=== PATIENT | female | born 2000 | race Caucasian/White ===

== ENCOUNTER 2021-03-13 14:31 | Inpatient (IN) | payer MEDICAID, SELFPAY ==
[2021-03-13 14:32] VITALS: BP 122/91; PULSE 108; RESP 16; TEMP 36.5; O2SAT 99; BMI 38.9
--- NOTE | 2021-03-13 14:59 | W.ED.PSYCH ---
HPI - Psych General: Chief Complaint: Psychiatric Symptoms Stated Complaint: SI Time Seen by Provider: 03/13/21 14:55 History of Present Illness: HPI Narrative: Patient states she has thoughts of self-harm. States that she has PTSD which is being triggered by having nightmares here recently she had a close friend that in December 2020. Patient states that she feels like that were might be better off if she was not here. Said she spent most of her young life and psychiatric facilities. Patient also says she does not take medication on a regular basis but has been prescribed that. complaint: other (Thoughts of self-harm) Onset (ago): day(s) Duration: constant and getting worse History of same: Yes Context: not taking psychiatric medications Associated symptoms: Reports depression; Deny homicidal ideation or suicidal ideation Treatments prior to arrival: none If self harm: admits thoughts of self harm Review of Systems Const: Denies: fever(s), chills or body aches Eyes: Denies: change in vision or blurry vision ENMT: Denies: throat pain or nasal congestion Card: Denies: chest pain or dyspnea on exertion Resp: Denies: dyspnea, productive cough or non-productive cough GI: Denies: abdominal pain, nausea or vomiting Musc: Denies: extremity pain Skin/Breast: Denies: rash Neuro: Denies: headache(s) Psych: Reports: depression, hopelessness and other (Thoughts of self-harm); Denies: anxiety, suicidal ideation or homicidal ideation Otto/Lymph: Denies: easy bruising Physical Exam Const: COMMON NORMALS: no acute distress, average body habitus and patient oriented x3 HENMT: COMMON NORMALS: normocephalic HEAD & SCALP: normal to inspection and normocephalic FACE & SINUS: normal facial exam Eye: COMMON NORMALS: conjunctivae normal GENERAL EYE: appearance normal, both eyes and all related structures CONJUNCTIVA: Yes conjunctivae normal Neck/C-Spine: COMMON NORMALS: no JVD Chest: COMMONS NORMALS: normal inspection of the chest Resp: COMMON NORMALS: normal respiratory effort and clear to auscultation bilaterally AUSCULTATION: clear to auscultation bilaterally Cardio: COMMON NORMALS: no JVD, regular rate and regular rhythm RATE: regular rate RHYTHM: regular rhythm GI: COMMON NORMALS: Normal to inspection, nondistended, normoactive bowel sounds present Extremity: COMMON NORMALS: normal to inspection and full ROM Neuro: COMMON NORMALS: patient oriented x3 Psych: COMMON NORMALS: mental status grossly normal, Normal thought process present and speech normal APPEARANCE: Yes grossly normal ATTITUDE: Yes calm and Yes engaged ACTIVITY/MOTOR BEHAVIOR: Yes appropriate eye contact SPEECH: Yes normal speech MOOD & AFFECT: Yes depressed mood and Yes sad THOUGHT PROCESS: Normal thought process present THOUGHT CONTENT: Yes other (Thoughts of self-harm) ATTENTION/CONCENTRATION: Yes attention grossly intact MEMORY/COGNITION: Yes memory grossly intact Course Vital Signs: Vital signs: Vital Signs Temperature 97.7 F 03/13/21 14:32 Pulse Rate 108 H 03/13/21 14:32 Respiratory Rate 16 03/13/21 14:32 Blood Pressure 122/91 03/13/21 14:32 Pulse Oximetry 99 03/13/21 14:32 MDM - Psych MDM Narrative: Medical decision making narrative: Dr. Glynn accepts patient for admission Lab Data: Labs: Lab Results 03/13/21 03/13/21 03/13/21 Range/Units 15:18 15:18 15:40 WBC 8.9 (4.5-13.0) 10^3/ uL RBC 5.06 (4.1-5.3) 10^6/u L Hgb 14.4 (11.5-15.3) g/dL Hct 42.3 (37.0-47.0) % MCV 83.6 (81-99) fl MCH 28.5 (28.0-34.0) pg MCHC 34.0 (30.0-36.0) g/dL RDW 12.1 (12.1-15.1) % Plt Count 340 (130-400) 10^3/c mm MPV 9.3 (7.4-10.4) fL Neut % (Auto) 62.2 % Lymph % (Auto) 27.3 % [place] % (Auto) 7.3 % Eos % (Auto) 2.5 % Baso % (Auto) 0.6 % Neut # (Auto) 5.55 (1.8-8.0) 10^3/u L Lymph # (Auto) 2.4 (1.5-6.5) 10^3/u L [place] # (Auto) 0.7 (0.2-0.9) 10^3/u L Eos # (Auto) 0.2 (0.0-0.8) 10^3/u L Baso # (Auto) 0.1 (0.0-0.1) 10^3/u L Nucleated RBC % (a uto) 0 % Nucleated RBCs # 0.0 /100WBC Urine Color Dark yellow (Yellow) Urine Appearance Hazy A (CLEAR) Urine pH 5 (5-7) Ur Specific Gravit y 1.030 (1.005-1.030) Urine Protein Neg (Negative) Urine Glucose (UA) Norm (Normal) Urine Ketones 1+ H (Negative) Urine Blood 3+ H (Negative) Urine Nitrate Negative (Negative) Urine Bilirubin 1+ H (Negative) Urine Urobilinogen 1 H (Negative) mg/dL Ur Leukocyte Jennifer ase Negative (Negative) Urine RBC 15-25 H (0-2) /hpf Urine WBC 0-4 H (0-5) /hpf Ur Squamous Epith Cells 55-80 H (0-5) /hpf Ur Transition Epit h Cell 10-15 /hpf Amorphous Sediment Not Reportable Urine Bacteria 2+ H (NONE) /hpf Urine Mucus 1+ /hpf Urine Opiates Scre en Negative (Negative) ng/mL Ur Barbiturates Sc reen Negative (Negative) ng/mL Ur Phencyclidine S crn Negative (Negative) ng/mL Ur Amphetamines Sc reen Negative (Negative) ng/mL U Benzodiazepines Scrn Negative (Negative) ng/mL Urine Cocaine Scre en Negative (Negative) ng/mL U Marijuana (THC) Screen Negative (Negative) ng/mL Discharge Plan Discharge Prescriptions: No Action No Known Home Medications RF: 0 Coding Level of Care Code ED Photographer News for Idalia Fwd Exam Comprehensive
[2021-03-13 16:08] LABS: Basophils # 0.1 10^3/uL (0.0-0.1); Basophils % 0.6 %; Eosinophils # 0.2 10^3/uL (0.0-0.8); Eosinophils % 2.5 %; Hematocrit 42.3 % (37.0-47.0); Hemoglobin 14.4 g/dL (11.5-15.3); Lymphocytes # 2.4 10^3/uL (1.5-6.5); Lymphocytes % 27.3 %; Mean Corpuscular Hemoglobin 28.5 pg (28.0-34.0); Mean Corpuscular Volume 83.6 fl (81-99); Mean Platelet Volume 9.3 fL (7.4-10.4); Monocytes # 0.7 10^3/uL (0.2-0.9); Monocytes % 7.3 %; Neutrophils # 5.55 10^3/uL (1.8-8.0); Neutrophils % 62.2 %; Nucleated Red Blood Cells % 0 %; Platelet Count 340 10^3/cmm (130-400); Red Blood Count 5.06 10^6/uL (4.1-5.3); Red Cell Distribution Width 12.1 % (12.1-15.1); White Blood Count 8.9 10^3/uL (4.5-13.0)
[2021-03-13 16:27] LABS: Amphetamines Screen Urine Negative (Negative); Barbiturates Screen Urine Negative (Negative); Benzodiazepines Screen Urine Negative (Negative); Cocaine Screen Urine Negative (Negative); Opiate Screen Urine Negative (Negative); PCP Screen Urine Negative (Negative); THC Screen Urine Negative (Negative)
[2021-03-13 16:36] LABS: Bilirubin Urine 1+ (Negative); Blood Urine 3+ (Negative); Glucose Urine UA Norm (Normal); Ketones Urine 1+ (Negative); Nitrate Urine Negative (Negative); Protein Urine Neg (Negative); Urine Appearance Hazy (CLEAR); Urine Color Dark Yellow (Yellow); Urobilinogen Urine 1 mg/dL (Negative); pH Urine 5 (5-7)
[2021-03-13 16:37] LABS: Add Urine Microscopic? YES; Leukocyte Esterase Urine Negative (Negative)
[2021-03-13 16:38] LABS: RBC Urine 15-25 /hpf (0-2); WBC Urine 0-4 /hpf (0-5)
[2021-03-13 16:39] LABS: Bacteria Urine 2+ /hpf; Mucus Urine 1+ /hpf; Squamous Epithelial Cell Urine 55-80 /hpf (0-5)
[2021-03-13 16:40] LABS: Add Urine Culture? No
[2021-03-13 16:46] LABS: Alanine Aminotransferase 19 U/L (0-33); Albumin Level 4.2 g/dL (3.5-5.2); Alkaline Phosphatase 95 IU/L (35-105); Anion Gap 17.5 (5-19); Aspartate Amino Transferase 19 U/L (0-32); Blood Urea Nitrogen 6 mg/dL (6-20); Carbon Dioxide 18 mmol/L (22-29); Chloride 107 mmol/L (98-107); Creatinine Clr Calc Pharmacy 145.6144; Globulin 2.8 g/dL (1.3-4.6); Glomerular Filtration Rate 107.8 mL/min (90-130); Glucose 88 mg/dL (65-115); Osmolality Calculated 285 mOsm/kg (285-295); Potassium 3.5 mmol/L (3.5-5.1); Sodium 139 mmol/L (136-145); Total Bilirubin 0.5 mg/dL (0.15-1.2)
[2021-03-13 16:47] LABS: Acetaminophen < 5.0 ug/mL (10-30); Salicylate < 0.3 mg/dL (3-10)
[2021-03-13 18:18] VITALS: BP 121/79; PULSE 102; RESP 18; TEMP 37.1; O2SAT 97
[2021-03-13 20:36] VITALS: BP 107/71; PULSE 96; RESP 15; TEMP 36.7; O2SAT 97
[2021-03-13] MEDS: trazodone 50 mg Tablet PO (21:34)
[2021-03-14 05:22] VITALS: BMI 38.9
[2021-03-14 06:00] VITALS: BP 103/67; PULSE 99; RESP 18; TEMP 36.5; O2SAT 95
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
[2021-03-14 14:22] VITALS: BP 103/73; PULSE 95; RESP 20; TEMP 36.7; O2SAT 98
[2021-03-14] MEDS: diphenhydrAMINE 50 mg Capsule PO (17:17)
[2021-03-14] MEDS: trazodone 50 mg Tablet PO (21:14)
--- NOTE | 2021-03-14 21:45 | PC.NURSE ---
PT REQUESTED SLEEP MED, TRAZODONE 50MG PO GIVEN.
[2021-03-14 22:00] VITALS: BP 85/53; PULSE 91; RESP 17; TEMP 36.8; O2SAT 99
--- NOTE | 2021-03-14 23:11 | PC.NURSE ---
PT RESTING QUIETLY WITH BOTH EYES CLOSED.
[2021-03-15 06:00] VITALS: BP 82/51; PULSE 85; RESP 15; TEMP 36.7; O2SAT 97
[2021-03-15] MEDS: BuSPIRONE 10 mg Tablet 15 MG PO (08:27)
--- NOTE | 2021-03-15 08:27 | PC.NURSE ---
Addendum entered by Lea Norris LPN 03/15/21 14:34: PRN MED EFFECTIVE NO FURTHER C/O ANXIETY Original Note: PRN BUSPAR 15 MG GIVEN PO PER PT C/O STATED ANXIETY
[2021-03-15] MEDS: nicotine 21 mg Patch 1 PATCH TRANSDERMA (09:04)
[2021-03-15 14:00] VITALS: BP 113/71; PULSE 75; RESP 16; TEMP 37.2; O2SAT 100
--- NOTE | 2021-03-15 17:14 | PM.NPN ---
Subjective NPU Subjective: Interval history: Chanel presents today reporting that overall he is feeling better. He continues to be focused on not having to stay too long as he and his boyfriend have figured out a plan to manage challenges and stressors that may have led to this hospitalization. He also was interested in a possible referral to a place to start hormone replacement and transitioning. Mental Status Exam MSE Comments: This is an obese versus morbidly obese trans male and [facility] scrubs with adequate grooming and eye contact. No abnormal movements except for mild psychomotor retardation. Cooperative with exam in no acute distress. Speech was decreased rate and volume. Mood described as a little better, affect subdued. Thought process organized. Thought content: Patient denied suicidal or homicidal ideation, there were no delusions reported or noted, he denied auditory or visual hallucinations. Attention and concentration were intact and memory appeared reliable, but none were formally tested. He is alert and oriented x3. Insight and judgment appear fair, impulse control is limited, but improving. Vitals/I&O/Wt Last Vital Signs Temp 98.4 F 03/15/21 20:15 Pulse 106 H 03/15/21 20:15 Resp 20 H 03/15/21 20:15 BP 109/82 03/15/21 20:15 Pulse Ox 97 03/15/21 20:15 Data NPU : 03/13/21 15:40 03/13/21 15:40 A&P Additional A&P Information (1) Self-harm: (2) [id number] transgender person: (3) Depression: (4) Anxiety: (5) PTSD (post-traumatic stress disorder): (6) Cluster B personality disorder in adult: This is a 20-year-old trans male with a long history of trauma, family chaos, PTSD and now likely personality disorder who presents reporting suicidal thoughts and being off of medication. 1. Continue current medication. We will continue to consider alternate antidepressants. 2. Continue every 15 minute checks for safety. 3. Encourage individual, group and milieu therapies. 4. We will work to connect her to outpatient services with a significant therapy component. Involuntary Hold Information 96 Hour Hold: 96 Hour Involuntary Admission: No Attestations NPU Medical Necessity Statement*: Inpatient hospitalization is medically necessary and the clinically appropriate intervention at this time. We will monitor medications and make changes as indicated. Likely length of stay 1-3 days. Coding Level of Care Code Acute Meat Stock Clerk for Idalia Mckay
[2021-03-15] MEDS: diphenhydrAMINE 50 mg Capsule PO (18:18)
--- NOTE | 2021-03-15 18:18 | PC.NURSE ---
PRN BENADRYL 50 MG GIVEN PO PER PT C/O ALLERGIES/BUG BITES
[2021-03-15 20:15] VITALS: BP 109/82; PULSE 106; RESP 20; TEMP 36.9; O2SAT 97
[2021-03-15] MEDS: acetaminophen 325 mg Tablet 650 MG PO (21:44)
[2021-03-15] MEDS: trazodone 50 mg Tablet PO (21:47)
[2021-03-16 06:00] VITALS: BP 90/59; PULSE 78; RESP 15; TEMP 36.4; O2SAT 94
[2021-03-16] MEDS: nicotine 21 mg Patch 1 PATCH TRANSDERMA (09:39)
[2021-03-16] MEDS: BuSPIRONE 10 mg Tablet 15 MG PO (09:40)
--- NOTE | 2021-03-16 09:41 | PC.NURSE ---
prn Buspar 15 mg given po per pt c/o anxiety
--- NOTE | 2021-03-16 12:19 | NPU.GN ---
[facility] Group Topic: Depression Bingo and Worrisome thoughts General Mood of Group Terrance participated by answering and asking questions. Terrance will possibly discharge today. Appropriate behavior .
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
[2021-03-16 14:35] VITALS: BP 90/59; PULSE 78; RESP 15; TEMP 36.4; O2SAT 94
== END 2021-03-16 15:56 | disposition home or self-care (01) | DRG 881 ==
LOC: ER 16:41 → NP 17:34
PROVIDERS: Admitting Provider Psychiatry & Neurology Psychiatry; Emergency Provider Nurse Practitioner Family; PCP Nurse Practitioner; Visit Provider Psychiatry & Neurology Psychiatry
DX: F32.9 Major depressive disorder, single episode, unspecified (principal); R45.851 Suicidal ideations; F43.10 Post-traumatic stress disorder, unspecified; F17.210 Nicotine dependence, cigarettes, uncomplicated; E66.01 Morbid (severe) obesity due to excess calories; F41.9 Anxiety disorder, unspecified; F60.89 Other specific personality disorders
CPT/HCPCS: 80053; 80306; 80307; 81001; 85025; 99285; Q0163

== ENCOUNTER 2021-04-01 12:43 | Emergency (ER) | payer MEDICAID, SELFPAY ==
[2021-04-01] VITALS (8 sets, daily range): BP systolic 98–128; BP diastolic 62–79; PULSE 84–104; RESP 13–18; TEMP 36.7–36.8; O2SAT 95–100; BMI 39.1
--- NOTE | 2021-04-01 13:37 | CT_ITS ---
WS: [id number] CT ABDOMEN AND PELVIS WITH CONTRAST HISTORY: abd pain, bilateral flank pain with nausea TECHNIQUE: Imaging performed of the abdomen and pelvis with IV contrast. Single phase imaging of the abdomen. Coronal and sagittal reformats are submitted. All CT scans at [facility] use at [address] one of these dose optimization techniques: automated exposure control; mA and/or kV adjustment per patient size (includes targeted exams where dose is matched to clinical indication); or iterative re construction. IV CONTRAST: Omnipaque 300; 95 mL IV. Oral contrast: No DLP: 1715.94 mGy.cm COMPARISON: None available. Lower thorax: Lung bases are clear. Heart is normal size. No hiatal hernia. Liver/biliary system: Normal size liver. Low-attenuation along the falciform ligament. Normal portal vein. Gallbladder: Normal. No gallstones or wall thickening. No pericholecystic fluid. Pancreas: Normal size pancreas and pancreatic duct. No adjacent inflammation. Spleen: Normal size spleen. No mass or infarct. Adrenal glands: Normal. Right kidney: Normal size kidney. Multifocal areas of decreased attenuation and enhancement in a wedg e-shaped distribution. No obstruction of the kidney. Very mild perinephric stranding. Left kidney: Normal size kidney with low-attenuation and wedge-shaped distribution throughout the kid rowan. No obstruction. Aorta: Normal. Lymphadenopathy: Numerous mesenteric and RIGHT lower quadrant lymph nodes are present and enlarged. L ymph nodes measure up to 12 mm in diameter. Free fluid: None. GI tract: Normal appendix. No GI tract obstruction or wall thickening. Abdominal wall: Unremarkable abdominal wall. No hernia. Pelvis: No free fluid or adenopathy within the pelvis. Uterus and ovaries are negative. Bones: Unremarkable. CT/CT abdomen pelvis w con* [id number] IMPRESSION: 1. Bilateral wedge-shaped areas of decreased attenuation within each kidney. M ost likely this is due to pyelonephritis. Correlate with urinalysis. 2. Numerous mesenteric and RIGHT lower quadrant lymph nodes. May be a response to the urinary tract infection. Consider mesenteric adenitis.
--- NOTE | 2021-04-01 13:53 | ED_ITS ---
HPI - General Adult General: Chief complaint: Abdominal Pain Stated complaint: SOB, pain in abd Time Seen by Provider: 04/01/21 13:24 History of Present Illness: HPI narrative: 20-year-old TransMasculine patient (biological sex assigned at : female) who identifies as Chanel presenting to the ER evaluation of new onset lower back pain that shoots up to the upper back x 1 day. Patient has had symptoms for the last day or so. 2 days ago, patient went to [place] with complaints of polyuria, lower back pain. At that point time, patient was diagnosed with urinary tract infection and was told that she has enlarged mesenteric lymph nodes. Since then, patient took Tylenol and antibiotics for UTI. She is no longer complaining polyuria/dysuria/hematuria. Patient denies any fever chills, history of Pyelonephritis, history of renal colic, exposure to Covid, cough, runny nose, sore throat, fever/chills. Patient complains of diffuse back pain to palpation. Onset: 1 day (back pain), total 4 days Duration:1 day of back pain Location:home Severity:moderate/severe Review of Systems Narrative: Constitutional: No fever, no chills. HEENT: No vision changes CV: No chest pain, no palpitations PULM: no cough, no dyspnea. GI: No abdominal pain, no N/V/D. : No dysuria MSKEL: No muscle pain SKIN: No new rashes, no lesions. NEURO: No headache, no focal weakness. HEME: No visible bruises PSYCH: Normal mood BACK: +diffuse pain to palpation [facility] ED Female Reproductive History: Date of last menstrual period: 03/25/21 Physical Exam Narrative: EXAM NARRATIVE: Head: Atraumatic Eyes: PERRL, conjunctiva without injection ENT: Mucous membrane moist NECK: Supple, ROM intact LUNGS: LCTAB, no crackles/rhonchi CV: RRR ABDOMEN: Soft, nontender in all quadrants, no guarding no rebound tenderness EXTREMITY: Normal ROM SKIN: No rash or erythema NEURO: Awake and alert, no focal motor deficits PSYCH: Normal mood and affect BACK: No visible induration, erythema or swelling. No midline step-off. Diffuse tenderness to palpation over the back, no crepitus, no visible scars or lesions. +B/l CVA tenderness Course Vital Signs: Vital signs: Vital Signs Temperature 98.3 F 04/01/21 16:48 Pulse Rate 86 04/01/21 16:48 Respiratory Rate 18 04/01/21 16:48 Blood Pressure 116/74 04/01/21 16:48 Pulse Oximetry 99 04/01/21 16:48 MDM - General Adult MDM Narrative: Medical decision making narrative: Patient is a 20-year-old female who presents the emergency room with complaints of diffuse back pain to palpation x1 day. CBC within normal limit, lactic acid within normal limits, patient continues to be afebrile emergency room. UA is consistent with possible UTI and patient is instructed to continue taking her antibiotics. CT showed mild b/l pyelonephritis. Patient received morphine in the emergency room with symptomatic improvement of back pain. Patient tolerated PO in the ER. Since patient requests for once daily medicine, will give levofloxacin. Rx: Levofloxacin 705mg x 5 days, zofran PRN nauesa/vomiting Patient is given follow-up with primary care provider for further evaluation of her symptoms. Patient is given precautions for any worsening pain, fever/chills, nausea/vomiting, worsening pain, or any new concerning complaints. Lab Data: Labs: Lab Results 04/01/21 04/01/21 04/01/21 Range/Units 13:40 13:50 13:50 WBC 7.6 (4.5-13.0) 10^3/ uL RBC 5.13 (4.1-5.3) 10^6/u L Hgb 14.6 (11.5-15.3) g/dL Hct 44.2 (37.0-47.0) % MCV 86.2 (81-99) fl MCH 28.5 (28.0-34.0) pg MCHC 33.0 (30.0-36.0) g/dL RDW 12.5 (12.1-15.1) % Plt Count 369 (130-400) 10^3/c mm MPV 9.3 (7.4-10.4) fL Neut % (Auto) 49.3 % Lymph % (Auto) 37.0 % [place] % (Auto) 9.1 % Eos % (Auto) 3.8 % Baso % (Auto) 0.7 % Neut # (Auto) 3.75 (1.8-8.0) 10^3/u L Lymph # (Auto) 2.8 (1.5-6.5) 10^3/u L [place] # (Auto) 0.7 (0.2-0.9) 10^3/u L Eos # (Auto) 0.3 (0.0-0.8) 10^3/u L Baso # (Auto) 0.1 (0.0-0.1) 10^3/u L Nucleated RBC % (a uto) 0 % Nucleated RBCs # 0.0 /100WBC Sodium 140 (136-145) mmol/L Potassium 4.1 (3.5-5.1) mmol/L Chloride 107 (98-107) mmol/L Carbon Dioxide 22 (22-29) mmol/L Anion Gap 15.1 (5-19) BUN 7 (6-20) mg/dL Creatinine 0.7 (0.5-0.9) mg/dL GFR Calculation 107.8 (90-130) mL/min Glucose 92 (65-115) mg/dL Calculated Osmolal ity 288 (285-295) mOsm/k g Lactate (0.5-2.2) mmol/L Calcium 9.2 (8.5-10.5) mg/dL Total Bilirubin 0.3 (0.15-1.2) mg/dL AST 21 (0-32) U/L ALT 25 (0-33) U/L Alkaline Phosphata se 102 (35-105) IU/L Total Protein 7.1 (6.6-8.7) g/dL Albumin 4.3 (3.5-5.2) g/dL Globulin 2.8 (1.3-4.6) g/dL Lipase 35 (13-60) U/L Ser , Rajani i-Qnt 0.50 mIU/mL Urine Color Yellow (Yellow) Urine Appearance Cloudy A (CLEAR) Urine pH 6 (5-7) Ur Specific Gravit y 1.020 (1.005-1.030) Urine Protein Neg (Negative) Urine Glucose (UA) Norm (Normal) Urine Ketones Negative (Negative) Urine Blood 2+ H (Negative) Urine Nitrate Negative (Negative) Urine Bilirubin Neg (Negative) Urine Urobilinogen 1 H (Negative) mg/dL Ur Leukocyte Jennifer ase Negative (Negative) Urine RBC Not Reportable Urine WBC 0-4 H (0-5) /hpf Ur Squamous Epith Cells 10-15 H (0-5) /hpf Amorphous Sediment Not Reportable Urine Bacteria 3+ H (NONE) /hpf 04/01/21 Range/Units 13:50 WBC (4.5-13.0) 10^3/ uL RBC (4.1-5.3) 10^6/u L Hgb (11.5-15.3) g/dL Hct (37.0-47.0) % MCV (81-99) fl MCH (28.0-34.0) pg MCHC (30.0-36.0) g/dL RDW (12.1-15.1) % Plt Count (130-400) 10^3/c mm MPV (7.4-10.4) fL Neut % (Auto) % Lymph % (Auto) % [place] % (Auto) % Eos % (Auto) % Baso % (Auto) % Neut # (Auto) (1.8-8.0) 10^3/u L Lymph # (Auto) (1.5-6.5) 10^3/u L [place] # (Auto) (0.2-0.9) 10^3/u L Eos # (Auto) (0.0-0.8) 10^3/u L Baso # (Auto) (0.0-0.1) 10^3/u L Nucleated RBC % (a uto) % Nucleated RBCs # /100WBC Sodium (136-145) mmol/L Potassium (3.5-5.1) mmol/L Chloride (98-107) mmol/L Carbon Dioxide (22-29) mmol/L Anion Gap (5-19) BUN (6-20) mg/dL Creatinine (0.5-0.9) mg/dL GFR Calculation (90-130) mL/min Glucose (65-115) mg/dL Calculated Osmolal ity (285-295) mOsm/k g Lactate 0.8 (0.5-2.2) mmol/L Calcium (8.5-10.5) mg/dL Total Bilirubin (0.15-1.2) mg/dL AST (0-32) U/L ALT (0-33) U/L Alkaline Phosphata se (35-105) IU/L Total Protein (6.6-8.7) g/dL Albumin (3.5-5.2) g/dL Globulin (1.3-4.6) g/dL Lipase (13-60) U/L Ser , Rajani i-Qnt mIU/mL Urine Color (Yellow) Urine Appearance (CLEAR) Urine pH (5-7) Ur Specific Gravit y (1.005-1.030) Urine Protein (Negative) Urine Glucose (UA) (Normal) Urine Ketones (Negative) Urine Blood (Negative) Urine Nitrate (Negative) Urine Bilirubin (Negative) Urine Urobilinogen (Negative) mg/dL Ur Leukocyte Jennifer ase (Negative) Urine RBC Urine WBC (0-5) /hpf Ur Squamous Epith Cells (0-5) /hpf Amorphous Sediment Urine Bacteria (NONE) /hpf Imaging Data^: Other Imaging: Radiologist's impression: [address] [address]MC Scan ReportSigned with Addenda Patient: Daniel Bynum #: [id number]: 2000Acct#:[id number]/Sex: 20 / FADM Date: 04/01/21Loc: ERRoom/Bed:Attending Dr: Ordering Provider/Ordering MD: Dandre Powell MD Date of Service: 04/01/21 Procedure(s): CT abdomen pelvis w con* [id number] Accession Number(s): [id number] Report Number: [id number] ADDENDUM WS: [id number] Addendum. RIGHT breast nodule anteriorly measures 16 mm. May be a small cyst or fibroadenoma in this age group. For further evaluation ultrasound could be obtained on a nonurgent basis. Addendum Dictated By: Britta Lord DOAddendum Signed By: Britta Lord DOSigned Date/Time:04/01/21 1539Addendum Cosigned By: WS: [id number] CT ABDOMEN AND PELVIS WITH CONTRAST HISTORY: abd pain, bilateral flank pain with nausea TECHNIQUE: Imaging performed of the abdomen and pelvis with IV contrast. Single phase imaging of the abdomen. Coronal and sagittal reformats are submitted. All CT scans at [facility] use at least one of these dose optimization techniques: automated exposure control; mA and/or kV adjustment per patient size (includes targeted exams where dose is matched to clinical indication); or iterative reconstruction. IV CONTRAST: Omnipaque 300; 95 mL IV. Oral contrast: No DLP: 1715.94 mGy.cm COMPARISON: None available. Lower thorax: Lung bases are clear. Heart is normal size. No hiatal hernia. Liver/biliary system: Normal size liver. Low-attenuation along the falciform ligament. Normal portal vein. Gallbladder: Normal. No gallstones or wall thickening. No pericholecystic fluid. Pancreas: Normal size pancreas and pancreatic duct. No adjacent inflammation. Spleen: Normal size spleen. No mass or infarct. Adrenal glands: Normal. Right kidney: Normal size kidney. Multifocal areas of decreased attenuation and enhancement in a wedge-shaped distribution. No obstruction of the kidney. Very mild perinephric stranding. Left kidney: Normal size kidney with low-attenuation and wedge-shaped distribution throughout the kidney. No obstruction. Aorta: Normal. Lymphadenopathy: Numerous mesenteric and RIGHT lower quadrant lymph nodes are present and enlarged. Lymph nodes measure up to 12 mm in diameter. Free fluid: None. GI tract: Normal appendix. No GI tract obstruction or wall thickening. Abdominal wall: Unremarkable abdominal wall. No hernia. Pelvis: No free fluid or adenopathy within the pelvis. Uterus and ovaries are negative. Bones: Unremarkable. CT/CT abdomen pelvis w con* [id number] IMPRESSION: 1. Bilateral wedge-shaped areas of decreased attenuation within each kidney. Most likely this is due to pyelonephritis. Correlate with urinalysis. 2. Numerous mesenteric and RIGHT lower quadrant lymph nodes. May be a response to the urinary tract infection. Consider mesenteric adenitis. Dictated By:Britta Lord DOSigned By:Britta Lord DOSigned Date/Time:04/01/21 1521DD/ 1512 Discharge Plan Discharge Patient Disposition: Home Clinical Impression: Back pain, Pyelonephritis Condition: Stable Prescriptions: New acetaminophen 500 mg tablet 500 mg PO Q6H PRN (Reason: back pain) 6 Days Qty: 24 RF: 0 ibuprofen 400 mg tablet 400 mg PO Q8H PRN (Reason: back pain) 6 Days Qty: 24 RF: 0 levofloxacin 750 mg tablet 750 mg PO DAILY 5 Days RF: 0 No Action buspirone 15 mg tablet 15 mg PO TID PRN (Reason: Anxiety) RF: 0 Discharge Orders: Discharge ED (Routine); Ordered 04/01/21 Ordered By: Dandre Powell Referrals: Joselito Donahue FNP [Primary Care Provider] - Discharge Diet: Advance as tolerated Discharge Activity: Resume usual activity Patient Instructions: Abdominal Pain (ED), Back Pain (ED) Activity Restrictions/Additional Instructions: Please follow-up with your primary care provider for evaluation of your pain. Come back to the emergency you have any new or concerning complaints, fever/chills, any other issues. Come back to the ER if you cannot tolerate your medicine, if your pain is worse, if you cannot drink or eat or if you any new or concerning issues. Coding Level of Care Code ED [employer] Professor for Idalia Mckay
[2021-04-01] MEDS: morphine 4 mg/mL SDV 1 mL IVP (13:58)
[2021-04-01 13:59] LABS: Basophils # 0.1 10^3/uL (0.0-0.1); Basophils % 0.7 %; Eosinophils # 0.3 10^3/uL (0.0-0.8); Eosinophils % 3.8 %; Hematocrit 44.2 % (37.0-47.0); Hemoglobin 14.6 g/dL (11.5-15.3); Lymphocytes # 2.8 10^3/uL (1.5-6.5); Mean Corpuscular Hemoglobin 28.5 pg (28.0-34.0); Mean Corpuscular Volume 86.2 fl (81-99); Mean Platelet Volume 9.3 fL (7.4-10.4); Monocytes # 0.7 10^3/uL (0.2-0.9); Monocytes % 9.1 %; Neutrophils # 3.75 10^3/uL (1.8-8.0); Neutrophils % 49.3 %; Nucleated Red Blood Cells % 0 %; Platelet Count 369 10^3/cmm (130-400); Red Blood Count 5.13 10^6/uL (4.1-5.3); Red Cell Distribution Width 12.5 % (12.1-15.1); White Blood Count 7.6 10^3/uL (4.5-13.0)
[2021-04-01] MEDS: sodium chloride 0.9% 1,000 ML 999 ML IV (14:03)
[2021-04-01 14:05] LABS: Charge for UA Resulting for Rev
[2021-04-01 14:12] LABS: Urine Color Yellow (Yellow)
[2021-04-01 14:13] LABS: Add Urine Microscopic? YES; Bilirubin Urine Neg (Negative); Blood Urine 2+ (Negative); Glucose Urine UA Norm (Normal); Ketones Urine Negative (Negative); Leukocyte Esterase Urine Negative (Negative); Nitrate Urine Negative (Negative); Protein Urine Neg (Negative); Urine Appearance Cloudy (CLEAR); Urobilinogen Urine 1 mg/dL (Negative); pH Urine 6 (5-7)
[2021-04-01 14:14] LABS: Add Urine Culture? No; Bacteria Urine 3+ /hpf; WBC Urine 0-4 /hpf (0-5)
[2021-04-01 14:40] LABS: Lactate (Lactic Acid level) 0.8 mmol/L (0.5-2.2)
[2021-04-01 14:53] LABS: Alanine Aminotransferase 25 U/L (0-33); Albumin Level 4.3 g/dL (3.5-5.2); Alkaline Phosphatase 102 IU/L (35-105); Anion Gap 15.1 (5-19); Aspartate Amino Transferase 21 U/L (0-32); Blood Urea Nitrogen 7 mg/dL (6-20); Calcium 9.2 mg/dL (8.5-10.5); Carbon Dioxide 22 mmol/L (22-29); Chloride 107 mmol/L (98-107); Globulin 2.8 g/dL (1.3-4.6); Glomerular Filtration Rate 107.8 mL/min (90-130); Glucose 92 mg/dL (65-115); Lipase 35 U/L (13-60); Osmolality Calculated 288 mOsm/kg (285-295); Potassium 4.1 mmol/L (3.5-5.1); Sodium 140 mmol/L (136-145); Total Bilirubin 0.3 mg/dL (0.15-1.2); Total Protein 7.1 g/dL (6.6-8.7)
[2021-04-01] MEDS: iohexol 300 mg/mL 100 mL Btl IV (14:57)
[2021-04-01] MEDS: levoFLOXacin 750 mg Tablet PO ×2 (15:58→16:11)
--- NOTE | 2021-04-01 16:05 | PC.NURSE ---
upon attempting to administer Levofloxacin pt reports she is unable to swallow it due to the pill is too big. Pill was crushed and placed in apple sauce. Pt reported she loved applesauce yet was noted to spit out applesauce stating I just don't feel good. Dr. Powell notified and spoke with patient who agrees to try again.
[2021-04-01] MEDS: ondansetron 2 mg/ML SDV 2 mL 4 MG IVP (16:11)
== END 2021-04-01 16:54 | disposition home or self-care (01) ==
PROVIDERS: Emergency Provider Emergency Medicine; PCP Nurse Practitioner
DX: M54.9 Dorsalgia, unspecified (principal); N12 Tubulo-interstitial nephritis, not specified as acute or chronic
CPT/HCPCS: 74177; 80053; 81001; 81003; 83605; 83690; 84702; 85025; 96361; 96374; 96375; 99284; J2270; J2405; J7030; Q9967

== ENCOUNTER 2021-04-23 09:39 | Outpatient (CLI) | payer MEDICAID, SELFPAY ==
--- NOTE | 2021-04-23 09:52 | US_ITS ---
WS: [id number] ULTRASOUND PELVIS TECHNIQUE: Transvaginal. CLINICAL INFORMATION: IRREGULAR MENSES COMPARISON: None. FINDINGS: Uterus Orientation: Anteverted. Size: 6.5 x 2.7 x 3.4 cm Masses: None. Cervix: Trace fluid Endometrium: Normal. Endometrium thickness: 0.2 cm. Adnexa: Normal. Right ovary size: 3.9 x 4.1 x 1.8 cm. Left ovary size: 3.8 x 4.1 x 1.9 cm. Free fluid: Minimal Other findings: None. US/US transvaginal [id number] IMPRESSION: 1. Normal uterus with thickened endometrium measuring 2 mm. 2. Normal ovaries bilaterally. 3. No adnexal masses. 4. Tiny amount of fluid in the cervix.
== END 2021-04-23 09:40 | disposition home or self-care (01) ==
PROVIDERS: PCP Nurse Practitioner; Visit Provider Obstetrics & Gynecology
DX: N92.1 Excessive and frequent menstruation with irregular cycle (principal)
CPT/HCPCS: 76830